=== PATIENT | female | born 1985 | race Two or more races ===

== ENCOUNTER 2024-07-05 08:04 | Inpatient (IN) | payer MEDICAID ==
[~2024-07-05] VITALS: Ht 165.1 cm; Wt 111.7 kg
[2024-07-05] MEDS ORDERED: acetaminophen 325mg tablet PO PRN ×3 (10:25→12:20)
[2024-07-05] MEDS ORDERED: mag hydrox/Alum hydrox/simeth 30ml oral suspension PO PRN ×2 (10:25→12:20)
[2024-07-05] MEDS ORDERED: loperamide 2mg capsule PO PRN ×2 (10:25→12:20)
[2024-07-05] MEDS: LORazepam 1 MG tablet PO ONE (11:09)
[2024-07-05] MEDS: OLANZapine 5mg rapidly disint. tablet PO ONE (11:52)
[2024-07-05] MEDS ORDERED: magnesium hydroxide 30ml (MOM) UD suspension PO PRN (12:20)
[2024-07-05 16:53] VITALS: BP 127/87; PULSE 100; RESP 16; TEMP 97; O2SAT 96
[2024-07-05] MEDS ORDERED: FLU VACC TS2024-25(6MOS UP)/PF 45 MCG/0.5 ML SYRINGE IMVAC ONE (17:25)
[2024-07-05] MEDS ORDERED: HYDR-3686 PO (17:53)
[2024-07-05] MEDS ORDERED: ZOLP10TA PO (17:53)
[2024-07-05] MEDS ORDERED: CLON0.1T2 PO (17:53)
[2024-07-05] MEDS ORDERED: AMLO2.5T2 PO (17:53)
[2024-07-05] MEDS ORDERED: GABA800T11 PO (17:53)
[2024-07-05] MEDS ORDERED: PRAZ2CAP2 PO (17:53)
[2024-07-05] MEDS ORDERED: GABA-530 PO (17:53)
[2024-07-05 18:15] VITALS: RESP 16; O2SAT 96
[2024-07-05 20:00] VITALS: RESP 16
[2024-07-06] MEDS: OLANZapine 2.5MG tablet PO PRN (00:20)
[2024-07-06 07:00] VITALS: BP 121/63; PULSE 80; RESP 17; TEMP 98; O2SAT 97
[2024-07-06 08:34] LABS: CHOL/HDL RATIO 3.1 (0.00-4.99); CHOLESTEROL 193 MG/DL (0-200); HDL CHOLESTEROL 63 MG/DL (35-60); LDL CHOLESTEROL 113 MG/DL (50-100); TRIGLYCERIDES 106 MG/DL (20-135)
[2024-07-06] MEDS: FLU VACC TS2024-25(6MOS UP)/PF 45 MCG/0.5 ML SYRINGE IMVAC ONE (09:01)
[2024-07-06] MEDS: nicotine 21mg patch - 24 hr TD SCH (10:14)
[2024-07-06] MEDS: acetaminophen 325mg tablet PO PRN (18:50)
[2024-07-06 19:00] VITALS: RESP 18; O2SAT 92
[2024-07-06] MEDS: cloNIDine 0.1 mg tablet PO SCH (19:33)
[2024-07-06 19:52] LABS: BASOPHILS % (AUTO) 0.7 % (0-1); EOSINOPHILS # (AUTO) 0.1 X10'3 (0-0.9); EOSINOPHILS % (AUTO) 1.9 % (0-6); HEMATOCRIT 37.3 % (35.0-45.0); HEMOGLOBIN 12.2 g/dl (12.0-16.0); LYMPHOCYTES # (AUTO) 1.6 X10'3 (1.1-4.8); LYMPHOCYTES % (AUTO) 23.2 % (21-51); MEAN CORPUSCULAR HEMOGLOBIN 24.7 PG (27.0-31.0); MEAN CORPUSCULAR HGB CONC 32.8 g/dL (33.0-36.5); MEAN CORPUSCULAR VOLUME 75.3 FL (78-98); MEAN PLATELET VOLUME 6.5 FL (7.4-10.4); MONOCYTES # (AUTO) 0.3 X10'3 (0-0.9); MONOCYTES % (AUTO) 4.2 % (2-12); NEUTROPHILS # (AUTO) 4.9 X10'3 (1.8-7.7); PLATELET COUNT 300 X10'3 (140-440); RED BLOOD COUNT 4.96 X10'6 (4.20-5.60); RED CELL DISTRIBUTION WIDTH 18.6 % (11.5-14.5); WHITE BLOOD COUNT 6.9 X10'3 (4.5-11.0)
[2024-07-06 20:00] VITALS: BP 169/118; PULSE 91; RESP 18; TEMP 97.8; O2SAT 92
[2024-07-06 20:06] LABS: ALANINE AMINOTRANSFERASE 59 U/L (12-78); ALBUMIN 3.2 G/DL (3.4-5.0); ALKALINE PHOSPHATASE 82 IU/L (46-116); ANION GAP 5 (8-16); ASPARTATE AMINO TRANSFERASE 38 U/L (10-37); BILIRUBIN,TOTAL 0.3 MG/DL (0.1-1.0); BLOOD UREA NITROGEN 10 MG/DL (7-18); BUN/CREATININE RATIO 13.2 (10.0-20.0); CALCIUM 8.7 MG/DL (8.5-10.1); CHLORIDE 106 MMOL/L (99-107); CREATININE 0.76 MG/DL (0.40-0.90); GLUCOSE 145 MG/DL (70-104); POTASSIUM 4.2 MMOL/L (3.5-5.1); SODIUM 139 MMOL/L (135-145); TOTAL CARBON DIOXIDE 27.7 MMOL/L (24-32); TOTAL PROTEIN 6.5 G/DL (6.4-8.2); eCRCL 71 ML/MIN; eGFR 84 ML/MIN
[2024-07-06] MEDS: gabapentin 100mg capsule PO SCH (21:37)
[2024-07-06] MEDS: hydrOXYzine 25 MG tablet PO SCH (21:37)
[2024-07-06] MEDS: prazosin 1mg capsule PO SCH (21:37)
[2024-07-06] MEDS: ESCITALOPRAM 10 mg tablet 10 MG TABLET PO SCH (21:37)
[2024-07-06] MEDS: zolpidem 5mg tablet PO PRN (21:45)
[2024-07-06] MEDS: gabapentin 400mg capsule PO SCH (21:51)
[2024-07-07 07:00] VITALS: BP 158/100; PULSE 92; RESP 12; TEMP 97.6; O2SAT 96
[2024-07-07 07:50] LABS: HEMOGLOBIN A1C 5.8 % (4.5-6.2)
[2024-07-07] MEDS: amLODIPine 5mg tablet PO SCH (08:21)
[2024-07-07] MEDS: OLANZapine 2.5MG tablet PO ONE (10:44)
[2024-07-07 19:00] VITALS: RESP 15; O2SAT 98
[2024-07-07 20:00] VITALS: BP 134/76; PULSE 82; RESP 13; TEMP 97.6; O2SAT 94
[2024-07-07 20:37] VITALS: BP 159/93; PULSE 72; RESP 15; TEMP 97.6; O2SAT 98
[2024-07-07] MEDS: OLANZapine 2.5MG tablet PO SCH (21:37)
[2024-07-08] VITALS (7 sets, daily range): BP systolic 112–126; BP diastolic 58–82; PULSE 75–83; RESP 16–18; TEMP 97.5–98.1; O2SAT 95–97
[2024-07-08] MEDS ORDERED: ALBU8HFA INH (17:45)
[2024-07-08] MEDS ORDERED: BECL7.3A INH (17:45)
[2024-07-08] MEDS: albuterol 2.5 MG/3 ML nebule NEB PRN (20:52)
[2024-07-08] MEDS: budesonide 0.5mg/2ml UD nebule IH SCH (20:53)
[2024-07-09] VITALS (8 sets, daily range): BP systolic 12–126; BP diastolic 70–87; PULSE 72–91; RESP 16–18; TEMP 97.7–97.9; O2SAT 96
[2024-07-09] MEDS: ondansetron 4mg rapidly disintigrating tab PO ONE (09:24)
[2024-07-09] MEDS: LORazepam 0.5 MG tablet PO ONE ×2 (09:24→11:12)
[2024-07-09 13:27] LABS: THYROID STIMULATING HORMONE 2.03 ulU/ml (0.34-4.50)
[2024-07-09] MEDS: docusate sod 100mg capsule PO SCH (20:25)
[2024-07-09] MEDS: magnesium hydroxide 30ml (MOM) UD suspension PO PRN (20:25)
[2024-07-09] MEDS: OLANZapine 2.5MG tablet PO ONE (21:34)
[2024-07-10 07:30] VITALS: BP 121/72; PULSE 77; RESP 16; TEMP 98.9; O2SAT 96
[2024-07-10 07:37] VITALS: PULSE 102; RESP 15
[2024-07-10] MEDS ORDERED: OLANZapine 2.5MG tablet PO SCH (12:30)
[2024-07-10] MEDS: OLANZapine 2.5MG tablet PO SCH (13:10)
[2024-07-10] MEDS: OLANZapine 2.5MG tablet PO ONE (17:40)
[2024-07-10 19:00] VITALS: RESP 16; O2SAT 96
[2024-07-10 20:00] VITALS: BP 119/60; PULSE 66; PULSE 73; RESP 16; RESP 18; TEMP 97.5; O2SAT 96
[2024-07-10 20:06] VITALS: PULSE 64; RESP 18
[2024-07-11 07:30] VITALS: BP 126/84; PULSE 90; RESP 16; TEMP 98.6; O2SAT 95
[2024-07-11 19:00] VITALS: BP 120/80; PULSE 74; RESP 16; TEMP 98.4; O2SAT 97; O2SAT 98
[2024-07-11] MEDS ORDERED: hydrOXYzine 10 MG tablet PO PRN (20:15)
[2024-07-11] MEDS: LORazepam 1 MG tablet PO ONE (21:09)
[2024-07-11] MEDS: OLANZapine 2.5MG tablet PO SCH (21:09)
[2024-07-12 07:30] VITALS: BP 138/82; PULSE 92; RESP 16; TEMP 97.1; O2SAT 96
[2024-07-12 08:30] VITALS: RESP 16; O2SAT 96
[2024-07-12 09:12] VITALS: PULSE 72; PULSE 88; RESP 18; O2SAT 99
[2024-07-12] MEDS: hydrOXYzine 25 MG tablet PO PRN (12:30)
[2024-07-12 16:35] LABS: IRON 28 UG/DL (49-151)
[2024-07-12 17:10] LABS: FERRITIN 8 NG/ML (8-252)
[2024-07-12] MEDS: NICOTINE POLACRILEX 2 MG LOZENGE BC PRN (17:12)
[2024-07-12] MEDS: ondansetron 4mg rapidly disintigrating tab PO STA (17:38)
[2024-07-12 18:00] VITALS: BP 125/69; PULSE 71; RESP 18; TEMP 98.5; O2SAT 96
[2024-07-12 18:36] LABS: BASOPHILS # (AUTO) 0.1 X10'3 (0-0.2); BASOPHILS % (AUTO) 0.9 % (0-1); EOSINOPHILS # (AUTO) 0.2 X10'3 (0-0.9); HEMATOCRIT 36.8 % (35.0-45.0); LYMPHOCYTES # (AUTO) 2.2 X10'3 (1.1-4.8); LYMPHOCYTES % (AUTO) 28.2 % (21-51); MEAN CORPUSCULAR HEMOGLOBIN 24.9 PG (27.0-31.0); MEAN CORPUSCULAR HGB CONC 32.5 g/dL (33.0-36.5); MEAN CORPUSCULAR VOLUME 76.5 FL (78-98); MEAN PLATELET VOLUME 6.6 FL (7.4-10.4); MONOCYTES # (AUTO) 0.6 X10'3 (0-0.9); MONOCYTES % (AUTO) 7.3 % (2-12); NEUTROPHILS # (AUTO) 4.8 X10'3 (1.8-7.7); NEUTROPHILS % (AUTO) 60.6 % (42-75); PLATELET COUNT 304 X10'3 (140-440); RED BLOOD COUNT 4.81 X10'6 (4.20-5.60); RED CELL DISTRIBUTION WIDTH 18.7 % (11.5-14.5); WHITE BLOOD COUNT 7.9 X10'3 (4.5-11.0)
[2024-07-12 18:56] LABS: ALANINE AMINOTRANSFERASE 39 U/L (12-78); ALBUMIN 2.9 G/DL (3.4-5.0); ALBUMIN/GLOBULIN RATIO 0.8 (1.1-1.5); ALKALINE PHOSPHATASE 84 IU/L (46-116); ANION GAP 4 (8-16); ASPARTATE AMINO TRANSFERASE 22 U/L (10-37); BILIRUBIN,TOTAL 0.2 MG/DL (0.1-1.0); BLOOD UREA NITROGEN 15 MG/DL (7-18); BUN/CREATININE RATIO 25.9 (10.0-20.0); CALCIUM 8.4 MG/DL (8.5-10.1); CHLORIDE 108 MMOL/L (99-107); CREATININE 0.58 MG/DL (0.40-0.90); GLUCOSE 114 MG/DL (70-104); POTASSIUM 4.2 MMOL/L (3.5-5.1); SODIUM 139 MMOL/L (135-145); TOTAL CARBON DIOXIDE 26.9 MMOL/L (24-32); TOTAL PROTEIN 6.4 G/DL (6.4-8.2); eCRCL 93 ML/MIN; eGFR > 90 ML/MIN
[2024-07-12 19:00] VITALS: BP 136/84; PULSE 67; RESP 18; TEMP 97.9; O2SAT 96
[2024-07-12] MEDS: HYDROcodone/acetaminophen 5mg/325mg tablet PO ONE (19:03)
[2024-07-12 19:39] LABS: BILIRUBIN,URINE NEGATIVE (Neg); CLARITY,URINE SLIGHTLY CLOUDY (Clear); COLOR,URINE YELLOW (Yellow); GLUCOSE, URINE NEGATIVE (Neg); KETONES,URINE NEGATIVE (Neg); LEUKOCYTE ESTERASE ,URINE NEGATIVE (Neg); NITRITES, URINE NEGATIVE (Neg); OCCULT BLOOD,URINE NEGATIVE (Neg); PROTEIN,URINE NEGATIVE (Neg); UROBILINOGEN,URINE 0.2 E.U/dL (0.2-1.0)
[2024-07-12 19:40] LABS: UA COLLECTION TYPE CLN CATCH MIDSTREAM
[2024-07-12 20:00] LABS: AMORPHOUS PHOSPHATES 1+; BACTERIA,URINE NONE SEEN /HPF (Neg); MUCUS STRANDS NONE SEEN /LPF (Neg); RBC,URINE 0-2 /HPF (0-2); SQUAMOUS EPITHELIAL CELL,UR MODERATE /LPF (FEW); WBC,URINE 0-4 /HPF (0-4)
[2024-07-12] MEDS: mineral oil/petrolatum, white cream 113gm jar TP SCH (20:00)
[2024-07-12 20:18] LABS: ANISOCYTOSIS 2+; MICROCYTOSIS 1+; PLATELET ESTIMATE NORMAL
[2024-07-12 20:19] LABS: ELLIPTOCYTES FEW
[2024-07-12 20:25] VITALS: PULSE 67; RESP 16; O2SAT 97
[2024-07-12] MEDS: ferrous sulfate 325mg tablet PO SCH (20:25)
[2024-07-13 07:30] VITALS: BP 101/59; PULSE 66; RESP 16; TEMP 97.8; O2SAT 94
[2024-07-13 07:42] VITALS: BP 120/77; PULSE 80
[2024-07-13 07:45] VITALS: RESP 16; O2SAT 94
[2024-07-13] MEDS: ibuprofen tablet 400 MG TABLET PO SCH (07:48)
[2024-07-13 19:03] VITALS: RESP 14; O2SAT 97
[2024-07-13 20:00] VITALS: BP 122/71; PULSE 91; RESP 14; TEMP 97.6; O2SAT 97
[2024-07-13] MEDS: hydrOXYzine 25 MG tablet PO SCH (20:12)
[2024-07-14 07:00] VITALS: RESP 16
[2024-07-14 08:00] VITALS: BP 132/83; PULSE 77; RESP 15; TEMP 98.2; O2SAT 97
[2024-07-14] MEDS: ibuprofen tablet 400 MG TABLET PO PRN (08:52)
[2024-07-14 08:57] VITALS: PULSE 90; RESP 17; O2SAT 99
[2024-07-14 09:07] VITALS: PULSE 103; RESP 17
[2024-07-14] MEDS ORDERED: OLANZAPINE 5 MG TABLET PO ONE (11:05)
[2024-07-14] MEDS: BUPROPION HCL 150MG XL 24 HR 150 MG TAB PO ONE (12:24)
[2024-07-14 19:00] VITALS: RESP 16; O2SAT 94
[2024-07-14 19:39] VITALS: BP 111/58; PULSE 77; RESP 16; TEMP 97.3; O2SAT 94
[2024-07-15 07:30] VITALS: BP 113/73; PULSE 111; RESP 16; TEMP 97.5; O2SAT 96
[2024-07-15] MEDS: BUPROPION HCL 150MG XL 24 HR 150 MG TAB PO SCH (08:27)
[2024-07-15] MEDS: magnesium citrate 296ml oral solution PO ONE (09:06)
[2024-07-15 09:35] VITALS: PULSE 93; PULSE 95; RESP 17; O2SAT 99
[2024-07-15 12:35] VITALS: BP 118/68; PULSE 85; RESP 16; TEMP 99.4; O2SAT 95
[2024-07-15 17:52] LABS: BASOPHILS # (AUTO) 0.1 X10'3 (0-0.2); BASOPHILS % (AUTO) 0.5 % (0-1); EOSINOPHILS # (AUTO) 0.1 X10'3 (0-0.9); EOSINOPHILS % (AUTO) 0.7 % (0-6); HEMATOCRIT 34.3 % (35.0-45.0); HEMOGLOBIN 11.1 g/dl (12.0-16.0); LYMPHOCYTES # (AUTO) 1.7 X10'3 (1.1-4.8); LYMPHOCYTES % (AUTO) 14.2 % (21-51); MEAN CORPUSCULAR HEMOGLOBIN 24.6 PG (27.0-31.0); MEAN CORPUSCULAR HGB CONC 32.4 g/dL (33.0-36.5); MEAN PLATELET VOLUME 6.7 FL (7.4-10.4); MONOCYTES % (AUTO) 7.9 % (2-12); NEUTROPHILS # (AUTO) 9.4 X10'3 (1.8-7.7); NEUTROPHILS % (AUTO) 76.7 % (42-75); PLATELET COUNT 318 X10'3 (140-440); RED BLOOD COUNT 4.51 X10'6 (4.20-5.60); RED CELL DISTRIBUTION WIDTH 18.3 % (11.5-14.5); WHITE BLOOD COUNT 12.3 X10'3 (4.5-11.0)
[2024-07-15 17:57] LABS: ALANINE AMINOTRANSFERASE 36 U/L (12-78); ALBUMIN/GLOBULIN RATIO 0.8 (1.1-1.5); ALKALINE PHOSPHATASE 72 IU/L (46-116); ANION GAP 8 (8-16); ASPARTATE AMINO TRANSFERASE 21 U/L (10-37); BILIRUBIN,TOTAL 0.4 MG/DL (0.1-1.0); BLOOD UREA NITROGEN 14 MG/DL (7-18); BUN/CREATININE RATIO 19.4 (10.0-20.0); CALCIUM 8.2 MG/DL (8.5-10.1); CHLORIDE 104 MMOL/L (99-107); CREATININE 0.72 MG/DL (0.40-0.90); GLUCOSE 106 MG/DL (70-104); POTASSIUM 4.1 MMOL/L (3.5-5.1); SODIUM 138 MMOL/L (135-145); TOTAL CARBON DIOXIDE 26.4 MMOL/L (24-32); TOTAL PROTEIN 6.8 G/DL (6.4-8.2); eCRCL 75 ML/MIN; eGFR 90 ML/MIN
[2024-07-15] MEDS: HYDROcodone/acetaminophen 5mg/325mg tablet PO PRN (18:48)
[2024-07-15] MEDS: LORazepam 0.5 MG tablet PO PRN (18:48)
[2024-07-15 19:33] VITALS: BP 115/51; PULSE 77; RESP 17; TEMP 98.4; O2SAT 95
[2024-07-15 19:36] VITALS: RESP 17; O2SAT 95
[2024-07-15] MEDS: prazosin 1mg capsule PO SCH (20:47)
[2024-07-15] MEDS ORDERED: iohexol 300mg/ml 100ml inj. ONE (20:58)
[2024-07-15] MEDS: morphine 10 MG/5 ML UD oral solution PO PRN (22:54)
[2024-07-15] MEDS: metroNIDAZOLE 500mg tablet PO SCH (22:58)
[2024-07-15 23:30] LABS: BILIRUBIN,URINE NEGATIVE (Neg); CLARITY,URINE CLEAR (Clear); COLOR,URINE YELLOW (Yellow); GLUCOSE, URINE NEGATIVE (Neg); KETONES,URINE NEGATIVE (Neg); LEUKOCYTE ESTERASE ,URINE NEGATIVE (Neg); NITRITES, URINE NEGATIVE (Neg); OCCULT BLOOD,URINE NEGATIVE (Neg); PH,URINE 7.5 (4.8-8.0); PROTEIN,URINE NEGATIVE (Neg); UROBILINOGEN,URINE 0.2 E.U/dL (0.2-1.0)
[2024-07-15 23:38] LABS: UA COLLECTION TYPE URINAL
[2024-07-16 07:43] VITALS: PULSE 97; RESP 20; O2SAT 95
[2024-07-16 07:53] VITALS: PULSE 91; RESP 18
[2024-07-16 08:00] VITALS: BP 116/69; PULSE 100; RESP 16; TEMP 98.9; O2SAT 95
[2024-07-16] MEDS: levoFLOXACIN 750MG TABLET PO SCH (16:18)
[2024-07-16] MEDS: budesonide 0.5mg/2ml UD nebule IH SCH (18:00)
[2024-07-16 20:03] VITALS: BP 126/78; PULSE 78; RESP 16; TEMP 98.8; O2SAT 16
[2024-07-16] MEDS: ascorbic acid 500mg tablet PO SCH (20:17)
[2024-07-17 07:35] VITALS: BP 111/68; PULSE 92; RESP 15; TEMP 98.7; O2SAT 95
[2024-07-17 08:02] VITALS: PULSE 87; RESP 18; O2SAT 95
[2024-07-17 08:08] VITALS: PULSE 84; RESP 16
[2024-07-17 19:45] VITALS: RESP 16; O2SAT 95
[2024-07-17 20:00] VITALS: BP 114/54; PULSE 82; RESP 16; TEMP 98.1; O2SAT 96
[2024-07-18 07:22] VITALS: BP 102/58; PULSE 68; RESP 16; TEMP 97.9; O2SAT 94
[2024-07-18 08:31] VITALS: PULSE 80; RESP 20; O2SAT 98
[2024-07-18 08:37] VITALS: PULSE 80; RESP 20
[2024-07-18 19:00] VITALS: RESP 18; O2SAT 97
[2024-07-18 19:50] VITALS: BP 102/56; PULSE 78; RESP 18; TEMP 98.6; O2SAT 97
[2024-07-19 07:30] VITALS: BP 129/81; PULSE 95; RESP 16; TEMP 96.6; O2SAT 96
[2024-07-19 08:13] VITALS: RESP 16; O2SAT 96
[2024-07-19 08:42] VITALS: PULSE 73; RESP 20; O2SAT 98
[2024-07-19 18:40] LABS: EOSINOPHILS # (AUTO) 0.2 X10'3 (0-0.9)
[2024-07-19 18:42] LABS: BASOPHILS # (AUTO) 0.1 X10'3 (0-0.2); BASOPHILS % (AUTO) 0.6 % (0-1); EOSINOPHILS % (AUTO) 1.8 % (0-6); HEMATOCRIT 32.1 % (35.0-45.0); HEMOGLOBIN 10.8 g/dl (12.0-16.0); LYMPHOCYTES # (AUTO) 1.4 X10'3 (1.1-4.8); LYMPHOCYTES % (AUTO) 17.1 % (21-51); MEAN CORPUSCULAR HGB CONC 33.6 g/dL (33.0-36.5); MEAN CORPUSCULAR VOLUME 77.4 FL (78-98); MEAN PLATELET VOLUME 6.6 FL (7.4-10.4); MONOCYTES # (AUTO) 0.5 X10'3 (0-0.9); MONOCYTES % (AUTO) 5.5 % (2-12); NEUTROPHILS # (AUTO) 6.2 X10'3 (1.8-7.7); PLATELET COUNT 352 X10'3 (140-440); RED BLOOD COUNT 4.14 X10'6 (4.20-5.60); RED CELL DISTRIBUTION WIDTH 18.6 % (11.5-14.5); WHITE BLOOD COUNT 8.3 X10'3 (4.5-11.0)
[2024-07-19 19:00] VITALS: RESP 18; O2SAT 98
[2024-07-19 20:00] VITALS: BP 137/73; PULSE 89; RESP 14; TEMP 98.4; O2SAT 96
[2024-07-19 20:47] LABS: ANISOCYTOSIS 2+; MICROCYTOSIS 1+; PLATELET ESTIMATE NORMAL
[2024-07-19 20:48] LABS: ELLIPTOCYTES FEW; POLYCHROMASIA FEW
[2024-07-20 07:30] VITALS: BP 136/79; PULSE 74; RESP 20; TEMP 97.1; O2SAT 95
[2024-07-20 09:12] VITALS: PULSE 78; RESP 20; O2SAT 96
[2024-07-20 09:17] VITALS: PULSE 78; RESP 20
[2024-07-20 19:00] VITALS: RESP 18; O2SAT 98
[2024-07-20 20:00] VITALS: BP 107/57; PULSE 68; RESP 18; TEMP 97.4; O2SAT 98
[2024-07-20 20:11] VITALS: PULSE 65; RESP 18; O2SAT 97
[2024-07-21] MEDS: LORazepam 0.5 MG tablet PO PRN ×2 (03:02→12:39)
[2024-07-21 08:00] VITALS: BP 118/67; PULSE 100; RESP 16; TEMP 96.7; O2SAT 96
[2024-07-21 09:00] VITALS: PULSE 84; RESP 16; O2SAT 96
[2024-07-21 09:06] VITALS: PULSE 84; RESP 16
[2024-07-21] MEDS ORDERED: iohexol 300mg/ml 100ml inj. ONE (16:06)
[2024-07-21 19:00] VITALS: BP 147/70; PULSE 75; RESP 16; TEMP 98.1; O2SAT 93
[2024-07-21 20:28] VITALS: PULSE 76; RESP 16; O2SAT 96
[2024-07-21] MEDS: ESCITALOPRAM 10 mg tablet 10 MG TABLET PO SCH (20:40)
[2024-07-22] VITALS (8 sets, daily range): BP systolic 123–133; BP diastolic 81–86; PULSE 58–96; RESP 12–18; TEMP 97–97.8; O2SAT 94–98
[2024-07-22] MEDS: LORazepam 1 MG tablet PO PRN (08:06)
[2024-07-23] VITALS (7 sets, daily range): BP systolic 128–143; BP diastolic 76–83; PULSE 68–87; RESP 16–18; TEMP 97.7–98.1; O2SAT 95–98
[2024-07-23] MEDS: morphine 10 MG/5 ML UD oral solution PO PRN (17:19)
[2024-07-24] VITALS (7 sets, daily range): BP systolic 119–120; BP diastolic 63–66; PULSE 61–82; RESP 16–18; TEMP 97.9–98.1; O2SAT 95–99
[2024-07-25 07:15] VITALS: BP 125/77; PULSE 78; RESP 14; TEMP 98.6; O2SAT 96
[2024-07-25 07:40] VITALS: BP_SYST 125; PULSE 78
[2024-07-25 07:45] VITALS: RESP 14; O2SAT 96
[2024-07-25] MEDS ORDERED: DOCU100C40 PO (10:42)
[2024-07-25] MEDS ORDERED: ESCI-8 PO (10:42)
[2024-07-25] MEDS ORDERED: PRAZ1CAP5 PO (10:42)
[2024-07-25] MEDS ORDERED: MORPHINE PO (10:42)
[2024-07-25] MEDS ORDERED: OLAN2.5T28 PO (10:42)
[2024-07-25] MEDS ORDERED: BUPR-94 PO (10:42)
[2024-07-25] MEDS ORDERED: GABA300C PO (10:42)
[2024-07-25] MEDS ORDERED: HYDR-3972 PO (10:42)
[2024-07-25] MEDS ORDERED: NOR5T PO (10:42)
[2024-07-25] MEDS ORDERED: ZOLP10TA PO (10:42)
[2024-07-25] MEDS ORDERED: FER325T PO (10:42)
[2024-07-25] MEDS ORDERED: HYDR-3686 PO (10:42)
[2024-07-25 11:03] VITALS: RESP 16
[2024-07-25] MEDS: HYDROcodone/acetaminophen 10/325mg tab PO STA (11:03)
== END 2024-07-25 11:45 | disposition home or self-care (01) | DRG 756 ==
LOC: ADULT MH 09:55
PROVIDERS: ADMIT Psychiatry & Neurology Psychiatry; ATTEND Psychiatry & Neurology Psychiatry
PROC: GZHZZZZ Group Psychotherapy (ICD-10-PCS; principal; 2024-07-14)
PROC: GZ51ZZZ Individual Psychotherapy, Behavioral (ICD-10-PCS; 2024-07-14)
PROC: GZ56ZZZ Individual Psychotherapy, Supportive (ICD-10-PCS; 2024-07-14)
DX: F41.1 Generalized anxiety disorder (principal); R45.851 Suicidal ideations; D50.8 Other iron deficiency anemias; F10.10 Alcohol abuse, uncomplicated; F17.210 Nicotine dependence, cigarettes, uncomplicated; F32.A Depression, unspecified; G25.81 Restless legs syndrome; K59.00 Constipation, unspecified; F42.9 Obsessive-compulsive disorder, unspecified; K52.9 Noninfective gastroenteritis and colitis, unspecified; F39 Unspecified mood [affective] disorder; F41.0 Panic disorder [episodic paroxysmal anxiety]; I10 Essential (primary) hypertension; F43.10 Post-traumatic stress disorder, unspecified; J44.9 Chronic obstructive pulmonary disease, unspecified; Z90.710 Acquired absence of both cervix and uterus; Z79.899 Other long term (current) drug therapy; Z85.41 Personal history of malignant neoplasm of cervix uteri; Z83.3 Family history of diabetes mellitus
CPT/HCPCS: 36415; 71045; 74018; 74177; 76700; 80053; 80061; 81001; 81003; 82728; 83036; 83540; 83605; 83690; 84145; 84443; 85008; 85025; 85651; 87045; 87046; 87081; 90686; 93005; 94640; 94760; 99285; A6250; Q0177; Q9967